=== PATIENT | male | born 1960 | race Caucasian/White ===

== ENCOUNTER 2021-02-11 10:26 | Inpatient (IN) | payer BC ==
[~2021-02-11] VITALS: Ht 172.7 cm; Wt 101.5 kg
[2021-02-11] MEDS ORDERED: SODIUM CHLORIDE 0.9% 1,000ML IVBOLUS ONE (11:30)
[2021-02-11] MEDS ORDERED: SODIUM CHLORIDE FLUSH 10ML SYR IVF ONE (11:30)
[2021-02-11 11:34] LABS: BASOPHILS % (AUTO) 1 % (0-1); EOSINOPHILS % (AUTO) 0 % (1-7); LYMPHOCYTES % (AUTO) 19 % (22-44); MEAN CORPUSCULAR HEMOGLOBIN 28.7 pg (27.5-34.5); MEAN CORPUSCULAR HGB CONC 34.2 g/dL (33.2-36.2); MONOCYTES % (AUTO) 6 % (2-9); NEUTROPHILS % (AUTO) 74 % (42-75); PLATELET COUNT 196 x10^3/uL (130-400); RED BLOOD COUNT 5.46 x10^6/uL (4.38-5.82); RED CELL DISTRIBUTION WIDTH 14.1 % (9.4-14.8)
[2021-02-11 11:42] LABS: ALANINE AMINOTRANSFERASE 59 U/L (12-78); ALBUMIN 3.6 g/dL (3.4-5.0); CALCIUM 8.2 mg/dL (8.5-10.1)
[2021-02-11 11:46] LABS: ALKALINE PHOSPHATASE 51 U/L (45-117); BILIRUBIN,TOTAL 0.4 mg/dL (0.2-1.0); TOTAL PROTEIN 7.5 g/dL (6.4-8.2)
[2021-02-11 12:02] LABS: ANION GAP 5 mmol/L (5-15); CHLORIDE 104 mmol/L (98-107)
[2021-02-11] MEDS ORDERED: ASPIRIN 81 MG TABLET CHEW PO ONE (12:30)
[2021-02-11 12:49] LABS: MICROSCOPIC AUTO
[2021-02-11] MEDS ORDERED: ASPIRIN 81 MG TABLET CHEW ONE (12:52)
--- NOTE | 2021-02-11 12:58 | NUR ---
late entry: first contact: NAUSEA, DIARRHEA, SUBJECTIVE FEVERS. REPORTS SEIZURE AND SYNCOPE ON TUESDAY, NO HX OF SEIZURES. COVID VACCINE TUESDAY. PT WITH STEADY GAIT TO BED. POSTIONED TO COMFORT. ATTACHED TO MONITORS. VSEly [place]. AT BEDSIDE. DR. MOELLER EVALUATED.
--- NOTE | 2021-02-11 12:58 | NUR ---
pt repostioned and medicated per franchesca. vss. cifuentes. at bedside.
--- NOTE | 2021-02-11 13:22 | NUR ---
REPORT CALLED TO [facility] READY TRANSFER
[2021-02-11 14:00] VITALS: BP 130/85
[2021-02-11] MEDS ORDERED: MELO7.5T31 PO (14:23)
[2021-02-11 15:30] LABS: CLOSTRIDIUM DIFFICILE ANTIGEN NEGATIVE; CLOSTRIDIUM DIFFICILE TOXIN NEGATIVE (Negative)
[2021-02-11 17:27] LABS: TROPONIN I 0.175 ng/mL (0.000-0.045)
[2021-02-11] MEDS ORDERED: ONDANSETRON ODT 4 MG PO PRN (18:00)
[2021-02-11] MEDS ORDERED: ONDANSETRON 2MG/ML, 2ML IVPush PRN (18:00)
[2021-02-11] MEDS ORDERED: MELATONIN 5 MG TABLET PO PRN (18:00)
[2021-02-11] MEDS ORDERED: BISACODYL 10 MG SUPP PR PRN (18:00)
[2021-02-11] MEDS ORDERED: DOCUSATE 100 MG CAPSULE PO PRN (18:00)
[2021-02-11] MEDS ORDERED: GUAIFENESIN/COD200MG-20MG/10ML LIQUID PO PRN (18:00)
[2021-02-11] MEDS ORDERED: HYDROcodone/APAP 5/325 TABLET PO PRN (18:00)
[2021-02-11] MEDS ORDERED: morphine SULFATE 10 MG/ML, 1ML IVPush PRN (18:00)
[2021-02-11] MEDS ORDERED: hydrALAzine 20 MG/ML, 1ML IVPush PRN (18:00)
[2021-02-11] MEDS ORDERED: POLYETHYLENE GLYCOL 17 GM PACKET PO PRN (18:00)
[2021-02-11] MEDS: D5%-LACTATED RINGERS 1,000 ML IV SCH (18:39)
[2021-02-11] MEDS: ENOXAPARIN 40 MG/0.4 ML SQ SCH (18:39)
[2021-02-11] MEDS ORDERED: CEFTRIAXONE 2 GM in DEXTROSE 5% 50 ML IVPB ONE (19:00)
[2021-02-11 19:08] LABS: TROPONIN I 0.178 ng/mL (0.000-0.045)
[2021-02-11 19:35] LABS: CRYPTOSPORIDIUM ANTIGEN Negative (Negative)
[2021-02-11 19:39] LABS: RAPID INFLUENZA A Negative (Negative); RAPID INFLUENZA B Negative (Negative)
[2021-02-11 19:52] VITALS: BP 136/87
[2021-02-12 01:06] LABS: TROPONIN I 0.198 ng/mL (0.000-0.045)
[2021-02-12 02:19] VITALS: BP_SYST 137; BP_SYST 139; BP_SYST 145; BP_DIAS 85; BP_DIAS 86; BP_DIAS 97
[2021-02-12] MEDS: ACETAMINOPHEN 325 MG TABLET PO PRN ×3 (04:24→22:25)
[2021-02-12] MEDS: ASPIRIN 325 MG TABLET EC PO SCH (05:45)
[2021-02-12 06:06] LABS: BASOPHILS % (AUTO) 1 % (0-1); EOSINOPHILS % (AUTO) 0 % (1-7); LYMPHOCYTES % (AUTO) 29 % (22-44); MEAN CORPUSCULAR HEMOGLOBIN 28.6 pg (27.5-34.5); MEAN CORPUSCULAR HGB CONC 34.1 g/dL (33.2-36.2); MEAN PLATELET VOLUME 7.4 fL (7.4-10.4); MONOCYTES % (AUTO) 6 % (2-9); NEUTROPHILS % (AUTO) 64 % (42-75); PLATELET COUNT 178 x10^3/uL (130-400); RED BLOOD COUNT 5.09 x10^6/uL (4.38-5.82); RED CELL DISTRIBUTION WIDTH 14.2 % (9.4-14.8)
[2021-02-12 06:20] LABS: ANION GAP 6 mmol/L (5-15); CALCIUM 8.1 mg/dL (8.5-10.1); CHLORIDE 103 mmol/L (98-107)
[2021-02-12 06:25] LABS: TROPONIN I 0.204 ng/mL (0.000-0.045)
[2021-02-12 06:31] LABS: ALANINE AMINOTRANSFERASE 61 U/L (12-78); ALKALINE PHOSPHATASE 43 U/L (45-117); BILIRUBIN,TOTAL 0.3 mg/dL (0.2-1.0); CHOL/HDL RATIO 4.1; CHOLESTEROL, TOTAL 131 mg/dL (140-239); CREATININE 1.12 mg/dL (0.7-1.3); HDL CHOL % 24 % (26-37); HDL CHOLESTEROL (DIRECT) 32 mg/dL (40-60); LDL CHOLESTEROL,CALCULATED 77 mg/dL (54-169); LDL/HDL RATIO 2.4 (0.5-3.0); TOTAL PROTEIN 6.8 g/dL (6.4-8.2); TRIGLYCERIDES 110 mg/dL (50-200); VLDL CHOLESTEROL 22 mg/dL (0-25)
[2021-02-12 07:28] VITALS: BP 109/68
[2021-02-12] MEDS: D5%-LACTATED RINGERS 1,000 ML IV SCH (09:01)
[2021-02-12] MEDS: PANTOPRAZOLE 40MG TABLET PO SCH (09:02)
[2021-02-12] MEDS: DOXYCYCLINE 100 MG in DEXTROSE 5% 250 ML IV SCH (12:24)
[2021-02-12] MEDS: GUAIFENESIN/COD200MG-20MG/10ML LIQUID PO SCH ×2 (13:30→22:25)
[2021-02-12] MEDS ORDERED: DIPHENOXYLATE/ATROPINE TABLET PO PRN (13:30)
[2021-02-12 15:16] VITALS: BP 118/75
[2021-02-12] MEDS ORDERED: REMDESIVIR 200 MG in SODIUM CHLORIDE 0.9% 250 ML IVPB ONE ×2 (18:00→21:00)
[2021-02-12] MEDS: CEFTRIAXONE 2 GM in DEXTROSE 5% 50 ML IVPB SCH (18:18)
[2021-02-12] MEDS: ENOXAPARIN 40 MG/0.4 ML SQ SCH (18:19)
[2021-02-12 18:45] LABS: D-DIMER 0.58 ug/mlFEU (0.00-0.52)
[2021-02-12 18:46] LABS: C-REACTIVE PROTEIN, QUANT 2.5 mg/dL (0.02-0.49)
[2021-02-12 21:20] VITALS: BP 135/82
[2021-02-12] MEDS: THIAMINE 100MG TABLET PO SCH (22:25)
[2021-02-12] MEDS: MELATONIN 5 MG TABLET PO SCH (22:25)
[2021-02-12] MEDS: ASCORBIC ACID 500 MG TABLET PO SCH (22:25)
[2021-02-13] MEDS: DOXYCYCLINE 100 MG in DEXTROSE 5% 250 ML IV SCH (01:30)
[2021-02-13 01:39] VITALS: BP 108/69
[2021-02-13] MEDS: GUAIFENESIN/COD200MG-20MG/10ML LIQUID PO SCH ×4 (05:09→23:20)
[2021-02-13] MEDS: ASPIRIN 325 MG TABLET EC PO SCH (05:09)
[2021-02-13] MEDS: D5%-LACTATED RINGERS 1,000 ML IV SCH ×2 (05:10→09:01)
[2021-02-13 05:43] LABS: BASOPHILS % (AUTO) 1 % (0-1); EOSINOPHILS % (AUTO) 0 % (1-7); LYMPHOCYTES % (AUTO) 27 % (22-44); MEAN CORPUSCULAR HEMOGLOBIN 28.5 pg (27.5-34.5); MEAN PLATELET VOLUME 7.1 fL (7.4-10.4); MONOCYTES % (AUTO) 5 % (2-9); NEUTROPHILS % (AUTO) 67 % (42-75); PLATELET COUNT 164 x10^3/uL (130-400); RED BLOOD COUNT 5.13 x10^6/uL (4.38-5.82)
[2021-02-13 05:52] LABS: ALANINE AMINOTRANSFERASE 80 U/L (12-78); ALBUMIN 3.1 g/dL (3.4-5.0); ANION GAP 6 mmol/L (5-15); CALCIUM 8.3 mg/dL (8.5-10.1); CHLORIDE 101 mmol/L (98-107)
[2021-02-13 05:54] LABS: ALKALINE PHOSPHATASE 51 U/L (45-117); BILIRUBIN,TOTAL 0.2 mg/dL (0.2-1.0); CREATININE 0.98 mg/dL (0.7-1.3); TOTAL PROTEIN 6.8 g/dL (6.4-8.2)
[2021-02-13] MEDS: CHOLECALCIFEROL 1,000 UNIT TABLET PO SCH (08:59)
[2021-02-13] MEDS: PANTOPRAZOLE 40MG TABLET PO SCH (08:59)
[2021-02-13] MEDS: THIAMINE 100MG TABLET PO SCH ×2 (08:59→20:55)
[2021-02-13] MEDS: ZINC SULFATE 220 MG CAPSULE PO SCH (09:00)
[2021-02-13] MEDS ORDERED: DIPHENOXYLATE/ATROPINE TABLET PO PRN (09:00)
[2021-02-13] MEDS: ASCORBIC ACID 500 MG TABLET PO SCH ×2 (09:00→20:55)
[2021-02-13] MEDS: DEXAMETHASONE 4 MG/ML, 1ML IVPush SCH (09:00)
[2021-02-13 09:11] VITALS: BP 142/91
[2021-02-13] MEDS: DOXYCYCLINE 100MG TABLET PO SCH ×2 (10:21→20:55)
[2021-02-13 13:17] VITALS: BP 159/93
[2021-02-13] MEDS: CEFTRIAXONE 2 GM in DEXTROSE 5% 50 ML IVPB SCH (17:37)
[2021-02-13] MEDS: ENOXAPARIN 40 MG/0.4 ML SQ SCH (17:37)
[2021-02-13] MEDS ORDERED: REMDESIVIR 100 MG in SODIUM CHLORIDE 0.9% 250 ML IVPB SCH (18:00)
[2021-02-13 19:07] VITALS: BP 152/82
[2021-02-13] MEDS: MELATONIN 5 MG TABLET PO SCH (20:56)
[2021-02-13] MEDS: REMDESIVIR 100 MG in SODIUM CHLORIDE 0.9% 250 ML IVPB SCH (20:56)
[2021-02-14] MEDS: D5%-LACTATED RINGERS 1,000 ML IV SCH ×2 (01:03→08:58)
[2021-02-14 01:08] VITALS: BP 124/78
[2021-02-14 04:54] LABS: ALBUMIN 2.6 g/dL (3.4-5.0); ANION GAP 4 mmol/L (5-15); CALCIUM 8.2 mg/dL (8.5-10.1); CHLORIDE 105 mmol/L (98-107); CREATININE 0.77 mg/dL (0.7-1.3)
[2021-02-14 04:57] LABS: ALANINE AMINOTRANSFERASE 68 U/L (12-78); ALKALINE PHOSPHATASE 38 U/L (45-117); BILIRUBIN,TOTAL 0.3 mg/dL (0.2-1.0); TOTAL PROTEIN 6.4 g/dL (6.4-8.2)
[2021-02-14] MEDS: GUAIFENESIN/COD200MG-20MG/10ML LIQUID PO SCH ×4 (05:08→23:00)
[2021-02-14] MEDS: ASPIRIN 325 MG TABLET EC PO SCH (05:08)
[2021-02-14] MEDS: ZINC SULFATE 220 MG CAPSULE PO SCH (08:57)
[2021-02-14] MEDS: DEXAMETHASONE 4 MG/ML, 1ML IVPush SCH (08:57)
[2021-02-14] MEDS: PANTOPRAZOLE 40MG TABLET PO SCH (08:58)
[2021-02-14] MEDS: THIAMINE 100MG TABLET PO SCH ×2 (08:58→21:34)
[2021-02-14] MEDS: CHOLECALCIFEROL 1,000 UNIT TABLET PO SCH (08:58)
[2021-02-14] MEDS: ASCORBIC ACID 500 MG TABLET PO SCH ×2 (08:58→21:34)
[2021-02-14] MEDS: DOXYCYCLINE 100MG TABLET PO SCH ×2 (08:58→21:34)
[2021-02-14 09:11] VITALS: BP 137/81
[2021-02-14 12:56] VITALS: BP 126/78
[2021-02-14] MEDS: CEFTRIAXONE 2 GM in DEXTROSE 5% 50 ML IVPB SCH (17:36)
[2021-02-14] MEDS: ENOXAPARIN 40 MG/0.4 ML SQ SCH (18:26)
[2021-02-14] MEDS: REMDESIVIR 100 MG in SODIUM CHLORIDE 0.9% 250 ML IVPB SCH (18:27)
[2021-02-14 18:35] VITALS: BP 149/92
[2021-02-14] MEDS: MELATONIN 5 MG TABLET PO SCH (21:00)
[2021-02-15] VITALS (7 sets, daily range): BP systolic 129–167; BP diastolic 74–97
[2021-02-15] MEDS: ASPIRIN 325 MG TABLET EC PO SCH (05:13)
[2021-02-15] MEDS: GUAIFENESIN/COD200MG-20MG/10ML LIQUID PO SCH ×4 (05:13→23:00)
[2021-02-15 05:43] LABS: ALBUMIN 2.8 g/dL (3.4-5.0); CALCIUM 8.4 mg/dL (8.5-10.1); CHLORIDE 107 mmol/L (98-107)
[2021-02-15 05:48] LABS: ALANINE AMINOTRANSFERASE 83 U/L (12-78); ALKALINE PHOSPHATASE 42 U/L (45-117); BILIRUBIN,TOTAL 0.4 mg/dL (0.2-1.0); CREATININE 0.78 mg/dL (0.7-1.3); TOTAL PROTEIN 6.8 g/dL (6.4-8.2)
[2021-02-15 05:54] LABS: ANION GAP 3 mmol/L (5-15)
[2021-02-15] MEDS: DOXYCYCLINE 100MG TABLET PO SCH ×2 (08:02→20:03)
[2021-02-15] MEDS: CHOLECALCIFEROL 1,000 UNIT TABLET PO SCH (08:02)
[2021-02-15] MEDS: ZINC SULFATE 220 MG CAPSULE PO SCH (08:02)
[2021-02-15] MEDS: THIAMINE 100MG TABLET PO SCH ×2 (08:02→20:03)
[2021-02-15] MEDS: ASCORBIC ACID 500 MG TABLET PO SCH ×2 (08:02→20:03)
[2021-02-15] MEDS: DEXAMETHASONE 4 MG/ML, 1ML IVPush SCH (08:02)
[2021-02-15] MEDS: PANTOPRAZOLE 40MG TABLET PO SCH (08:02)
[2021-02-15] MEDS: CEFTRIAXONE 2 GM in DEXTROSE 5% 50 ML IVPB SCH (17:13)
[2021-02-15] MEDS: ENOXAPARIN 40 MG/0.4 ML SQ SCH (17:15)
[2021-02-15] MEDS: REMDESIVIR 100 MG in SODIUM CHLORIDE 0.9% 250 ML IVPB SCH (18:10)
[2021-02-15] MEDS: MELATONIN 5 MG TABLET PO SCH (20:02)
[2021-02-16 00:49] VITALS: BP 128/78
[2021-02-16] MEDS: GUAIFENESIN/COD200MG-20MG/10ML LIQUID PO SCH ×4 (05:22→23:31)
[2021-02-16] MEDS: ASPIRIN 325 MG TABLET EC PO SCH (05:22)
[2021-02-16 06:10] LABS: BASOPHILS % (AUTO) 0 % (0-1); EOSINOPHILS % (AUTO) 0 % (1-7); LYMPHOCYTES % (AUTO) 14 % (22-44); MEAN CORPUSCULAR HEMOGLOBIN 28.6 pg (27.5-34.5); MEAN CORPUSCULAR HGB CONC 34.1 g/dL (33.2-36.2); MEAN PLATELET VOLUME 7.9 fL (7.4-10.4); MONOCYTES % (AUTO) 8 % (2-9); NEUTROPHILS % (AUTO) 78 % (42-75); PLATELET COUNT 247 x10^3/uL (130-400); RED BLOOD COUNT 5.36 x10^6/uL (4.38-5.82); RED CELL DISTRIBUTION WIDTH 13.9 % (9.4-14.8)
[2021-02-16 06:14] LABS: ALBUMIN 2.9 g/dL (3.4-5.0); ANION GAP 2 mmol/L (5-15); CALCIUM 8.8 mg/dL (8.5-10.1); CHLORIDE 106 mmol/L (98-107)
[2021-02-16 06:17] LABS: ALANINE AMINOTRANSFERASE 88 U/L (12-78); ALKALINE PHOSPHATASE 48 U/L (45-117); BILIRUBIN,TOTAL 0.5 mg/dL (0.2-1.0); CREATININE 0.86 mg/dL (0.7-1.3); TOTAL PROTEIN 6.8 g/dL (6.4-8.2)
[2021-02-16 08:23] VITALS: BP 128/82
[2021-02-16] MEDS: ZINC SULFATE 220 MG CAPSULE PO SCH (08:25)
[2021-02-16] MEDS: CHOLECALCIFEROL 1,000 UNIT TABLET PO SCH (08:25)
[2021-02-16] MEDS: DEXAMETHASONE 4 MG/ML, 1ML IVPush SCH (08:25)
[2021-02-16] MEDS: ASCORBIC ACID 500 MG TABLET PO SCH ×2 (08:25→21:28)
[2021-02-16] MEDS: DOXYCYCLINE 100MG TABLET PO SCH ×2 (08:25→21:28)
[2021-02-16] MEDS: THIAMINE 100MG TABLET PO SCH ×2 (08:30→21:28)
[2021-02-16] MEDS: PANTOPRAZOLE 40MG TABLET PO SCH (08:30)
[2021-02-16] MEDS ORDERED: FUROSEMIDE 40 MG/4 ML IV ONE (10:00)
[2021-02-16 13:25] VITALS: BP 121/78
[2021-02-16] MEDS: CEFTRIAXONE 2 GM in DEXTROSE 5% 50 ML IVPB SCH (17:00)
[2021-02-16] MEDS: ENOXAPARIN 40 MG/0.4 ML SQ SCH (18:18)
[2021-02-16] MEDS: REMDESIVIR 100 MG in SODIUM CHLORIDE 0.9% 250 ML IVPB SCH (18:18)
[2021-02-16 19:37] VITALS: BP 143/91
[2021-02-16] MEDS: MELATONIN 5 MG TABLET PO SCH (21:00)
[2021-02-16] MEDS: PIPERACILLIN/TAZO 3.375 GM in DEXTROSE 5% 50 ML IV SCH (22:15)
[2021-02-16 22:44] LABS: D-DIMER 0.62 ug/mlFEU (0.00-0.52)
[2021-02-17 02:09] VITALS: BP 135/82
[2021-02-17] MEDS: PIPERACILLIN/TAZO 3.375 GM in DEXTROSE 5% 50 ML IV SCH ×4 (04:32→22:08)
[2021-02-17] MEDS: ASPIRIN 325 MG TABLET EC PO SCH (04:32)
[2021-02-17] MEDS: GUAIFENESIN/COD200MG-20MG/10ML LIQUID PO SCH ×4 (04:32→22:07)
[2021-02-17 05:42] LABS: BASOPHILS % (AUTO) 0 % (0-1); EOSINOPHILS % (AUTO) 0 % (1-7); LYMPHOCYTES % (AUTO) 14 % (22-44); MEAN CORPUSCULAR HEMOGLOBIN 28.9 pg (27.5-34.5); MEAN CORPUSCULAR HGB CONC 34.8 g/dL (33.2-36.2); MONOCYTES % (AUTO) 9 % (2-9); NEUTROPHILS % (AUTO) 77 % (42-75); PLATELET COUNT 257 x10^3/uL (130-400); RED BLOOD COUNT 5.17 x10^6/uL (4.38-5.82); RED CELL DISTRIBUTION WIDTH 13.7 % (9.4-14.8)
[2021-02-17 05:52] LABS: ANION GAP 5 mmol/L (5-15); CALCIUM 8.6 mg/dL (8.5-10.1); CHLORIDE 103 mmol/L (98-107); CREATININE 0.75 mg/dL (0.7-1.3)
[2021-02-17] MEDS: CHOLECALCIFEROL 1,000 UNIT TABLET PO SCH (07:59)
[2021-02-17] MEDS: ZINC SULFATE 220 MG CAPSULE PO SCH (07:59)
[2021-02-17] MEDS: THIAMINE 100MG TABLET PO SCH ×2 (07:59→20:19)
[2021-02-17] MEDS: PANTOPRAZOLE 40MG TABLET PO SCH (07:59)
[2021-02-17] MEDS: DEXAMETHASONE 4 MG/ML, 1ML IVPush SCH (08:00)
[2021-02-17] MEDS: ASCORBIC ACID 500 MG TABLET PO SCH ×2 (08:00→20:19)
[2021-02-17 08:25] VITALS: BP 123/75
[2021-02-17 11:47] LABS: TROPONIN I 0.218 ng/mL (0.000-0.045)
[2021-02-17] MEDS ORDERED: OMNIPAQUE 350 MG/ML, 100ML BOTTLE ONE (12:24)
[2021-02-17 13:35] VITALS: BP 137/86
[2021-02-17] MEDS: ENOXAPARIN 40 MG/0.4 ML SQ SCH (17:33)
[2021-02-17 18:36] VITALS: BP 132/75
[2021-02-17] MEDS: MELATONIN 5 MG TABLET PO SCH (20:19)
[2021-02-18 00:52] VITALS: BP 113/72
[2021-02-18] MEDS: PIPERACILLIN/TAZO 3.375 GM in DEXTROSE 5% 50 ML IV SCH ×4 (05:01→23:54)
[2021-02-18] MEDS: ASPIRIN 325 MG TABLET EC PO SCH (05:02)
[2021-02-18] MEDS: GUAIFENESIN/COD200MG-20MG/10ML LIQUID PO SCH ×4 (05:02→23:54)
[2021-02-18 06:02] LABS: BASOPHILS % (AUTO) 0 % (0-1); EOSINOPHILS % (AUTO) 1 % (1-7); LYMPHOCYTES % (AUTO) 8 % (22-44); MEAN CORPUSCULAR HEMOGLOBIN 28.1 pg (27.5-34.5); MEAN CORPUSCULAR HGB CONC 33.9 g/dL (33.2-36.2); MEAN PLATELET VOLUME 7.4 fL (7.4-10.4); MONOCYTES % (AUTO) 7 % (2-9); NEUTROPHILS % (AUTO) 84 % (42-75); PLATELET COUNT 305 x10^3/uL (130-400); RED BLOOD COUNT 5.22 x10^6/uL (4.38-5.82); RED CELL DISTRIBUTION WIDTH 13.5 % (9.4-14.8)
[2021-02-18 06:20] LABS: ANION GAP 5 mmol/L (5-15); CALCIUM 8.4 mg/dL (8.5-10.1); CHLORIDE 106 mmol/L (98-107)
[2021-02-18 06:21] LABS: CREATININE 0.76 mg/dL (0.7-1.3)
[2021-02-18 07:31] VITALS: BP 119/72
[2021-02-18] MEDS: ASCORBIC ACID 500 MG TABLET PO SCH ×2 (08:12→20:01)
[2021-02-18] MEDS: PANTOPRAZOLE 40MG TABLET PO SCH (08:12)
[2021-02-18] MEDS: ZINC SULFATE 220 MG CAPSULE PO SCH (08:12)
[2021-02-18] MEDS: DEXAMETHASONE 4 MG/ML, 1ML IVPush SCH (08:12)
[2021-02-18] MEDS: CHOLECALCIFEROL 1,000 UNIT TABLET PO SCH (08:12)
[2021-02-18] MEDS: THIAMINE 100MG TABLET PO SCH ×2 (08:12→20:01)
[2021-02-18] MEDS ORDERED: REMDESIVIR 200 MG in SODIUM CHLORIDE 0.9% 250 ML IVPB ONE (11:00)
[2021-02-18 11:24] LABS: O2 FLOW 45 L/min
[2021-02-18] MEDS: FUROSEMIDE 20 MG/2 ML IV SCH ×2 (12:57→18:00)
[2021-02-18] MEDS ORDERED: DEXAMETHASONE 4 MG/ML, 1ML IVPush SCH (13:30)
[2021-02-18] MEDS ORDERED: DEXAMETHASONE 10 MG in SODIUM CHLORIDE 0.9% 50 ML IV SCH (13:30)
[2021-02-18 14:03] VITALS: BP 140/82
[2021-02-18] MEDS: ENOXAPARIN 40 MG/0.4 ML SQ SCH (17:59)
[2021-02-18 18:27] VITALS: BP 122/78
[2021-02-18] MEDS: MELATONIN 5 MG TABLET PO SCH (20:01)
[2021-02-18] MEDS: DEXAMETHASONE 10 MG in SODIUM CHLORIDE 0.9% 50 ML IV SCH (20:53)
[2021-02-19] VITALS: BP 154/94
[2021-02-19] MEDS: ASPIRIN 325 MG TABLET EC PO SCH (05:40)
[2021-02-19] MEDS: GUAIFENESIN/COD200MG-20MG/10ML LIQUID PO SCH ×4 (05:40→23:46)
[2021-02-19] MEDS: PIPERACILLIN/TAZO 3.375 GM in DEXTROSE 5% 50 ML IV SCH ×2 (05:40→10:59)
[2021-02-19 06:12] LABS: TROPONIN I 0.187 ng/mL (0.000-0.045)
[2021-02-19 07:01] LABS: ALANINE AMINOTRANSFERASE 87 U/L (12-78); ALBUMIN 2.7 g/dL (3.4-5.0); ANION GAP 10 mmol/L (5-15); CALCIUM 8.6 mg/dL (8.5-10.1); CHLORIDE 103 mmol/L (98-107); CREATININE 0.95 mg/dL (0.7-1.3)
[2021-02-19 07:03] LABS: ALKALINE PHOSPHATASE 61 U/L (45-117); BILIRUBIN,TOTAL 0.6 mg/dL (0.2-1.0)
[2021-02-19 07:56] VITALS: BP 130/84
[2021-02-19] MEDS: PANTOPRAZOLE 40MG TABLET PO SCH (08:53)
[2021-02-19] MEDS: FUROSEMIDE 20 MG/2 ML IV SCH ×2 (08:53→17:41)
[2021-02-19] MEDS: ASCORBIC ACID 500 MG TABLET PO SCH ×2 (08:54→20:21)
[2021-02-19] MEDS: DEXAMETHASONE 10 MG in SODIUM CHLORIDE 0.9% 50 ML IV SCH ×2 (08:54→20:21)
[2021-02-19] MEDS: THIAMINE 100MG TABLET PO SCH ×2 (08:54→20:22)
[2021-02-19] MEDS: ZINC SULFATE 220 MG CAPSULE PO SCH (08:54)
[2021-02-19] MEDS: CHOLECALCIFEROL 1,000 UNIT TABLET PO SCH (08:54)
[2021-02-19] MEDS: REMDESIVIR 100 MG in SODIUM CHLORIDE 0.9% 250 ML IVPB SCH (10:59)
[2021-02-19 12:07] VITALS: BP 129/77
[2021-02-19] MEDS: ENOXAPARIN 40 MG/0.4 ML SQ SCH (17:41)
[2021-02-19 20:16] VITALS: BP 145/88
[2021-02-19] MEDS: MELATONIN 5 MG TABLET PO SCH (20:22)
[2021-02-19 23:49] VITALS: BP 139/86
[2021-02-20 05:21] LABS: BASOPHILS % (AUTO) 0 % (0-1); EOSINOPHILS % (AUTO) 0 % (1-7); LYMPHOCYTES % (AUTO) 4 % (22-44); MEAN CORPUSCULAR HEMOGLOBIN 28.7 pg (27.5-34.5); MEAN CORPUSCULAR HGB CONC 34.4 g/dL (33.2-36.2); MEAN PLATELET VOLUME 7.5 fL (7.4-10.4); MONOCYTES % (AUTO) 6 % (2-9); NEUTROPHILS % (AUTO) 90 % (42-75); PLATELET COUNT 420 x10^3/uL (130-400); RED BLOOD COUNT 5.38 x10^6/uL (4.38-5.82); RED CELL DISTRIBUTION WIDTH 13.4 % (9.4-14.8)
[2021-02-20 05:35] LABS: ALBUMIN 2.8 g/dL (3.4-5.0); ANION GAP 6 mmol/L (5-15); CALCIUM 8.9 mg/dL (8.5-10.1); CHLORIDE 103 mmol/L (98-107)
[2021-02-20 05:39] LABS: ALANINE AMINOTRANSFERASE 70 U/L (12-78); ALKALINE PHOSPHATASE 67 U/L (45-117); BILIRUBIN,TOTAL 0.8 mg/dL (0.2-1.0); CREATININE 0.94 mg/dL (0.7-1.3); TOTAL PROTEIN 7.1 g/dL (6.4-8.2)
[2021-02-20] MEDS: ASPIRIN 325 MG TABLET EC PO SCH (05:39)
[2021-02-20] MEDS: GUAIFENESIN/COD200MG-20MG/10ML LIQUID PO SCH ×4 (05:39→23:58)
[2021-02-20 08:51] VITALS: BP 142/84
[2021-02-20] MEDS: THIAMINE 100MG TABLET PO SCH ×2 (08:53→20:32)
[2021-02-20] MEDS: PANTOPRAZOLE 40MG TABLET PO SCH (08:53)
[2021-02-20] MEDS: ASCORBIC ACID 500 MG TABLET PO SCH ×2 (08:54→20:32)
[2021-02-20] MEDS: CHOLECALCIFEROL 1,000 UNIT TABLET PO SCH (08:54)
[2021-02-20] MEDS: FUROSEMIDE 20 MG/2 ML IV SCH ×2 (08:54→18:50)
[2021-02-20] MEDS: ZINC SULFATE 220 MG CAPSULE PO SCH (08:54)
[2021-02-20] MEDS: DEXAMETHASONE 10 MG in SODIUM CHLORIDE 0.9% 50 ML IV SCH ×2 (10:00→20:32)
[2021-02-20] MEDS: REMDESIVIR 100 MG in SODIUM CHLORIDE 0.9% 250 ML IVPB SCH (11:04)
[2021-02-20 13:04] VITALS: BP 127/81
[2021-02-20 18:44] VITALS: BP 148/77
[2021-02-20] MEDS: ENOXAPARIN 40 MG/0.4 ML SQ SCH (18:50)
[2021-02-20] MEDS: MELATONIN 5 MG TABLET PO SCH (20:33)
[2021-02-20 23:59] VITALS: BP 142/88
[2021-02-21 05:41] LABS: BASOPHILS % (AUTO) 1 % (0-1); EOSINOPHILS % (AUTO) 0 % (1-7); LYMPHOCYTES % (AUTO) 4 % (22-44); MEAN CORPUSCULAR HGB CONC 34.9 g/dL (33.2-36.2); MEAN PLATELET VOLUME 7.7 fL (7.4-10.4); MONOCYTES % (AUTO) 3 % (2-9); NEUTROPHILS % (AUTO) 92 % (42-75); PLATELET COUNT 455 x10^3/uL (130-400); RED BLOOD COUNT 5.22 x10^6/uL (4.38-5.82); RED CELL DISTRIBUTION WIDTH 13.8 % (9.4-14.8)
[2021-02-21] MEDS: ASPIRIN 325 MG TABLET EC PO SCH (05:41)
[2021-02-21] MEDS: GUAIFENESIN/COD200MG-20MG/10ML LIQUID PO SCH ×4 (05:41→23:00)
[2021-02-21 05:50] LABS: ALANINE AMINOTRANSFERASE 57 U/L (12-78); ALBUMIN 2.6 g/dL (3.4-5.0); ANION GAP 6 mmol/L (5-15); CALCIUM 8.8 mg/dL (8.5-10.1); CHLORIDE 103 mmol/L (98-107); CREATININE 0.94 mg/dL (0.7-1.3)
[2021-02-21 05:52] LABS: ALKALINE PHOSPHATASE 59 U/L (45-117); BILIRUBIN,TOTAL 0.7 mg/dL (0.2-1.0); TOTAL PROTEIN 6.7 g/dL (6.4-8.2)
[2021-02-21 06:29] VITALS: BP 116/69
[2021-02-21] MEDS: ZINC SULFATE 220 MG CAPSULE PO SCH (09:32)
[2021-02-21] MEDS: PANTOPRAZOLE 40MG TABLET PO SCH (09:32)
[2021-02-21] MEDS: CHOLECALCIFEROL 1,000 UNIT TABLET PO SCH (09:32)
[2021-02-21] MEDS: DEXAMETHASONE 4 MG/ML, 1ML IVPush SCH (09:32)
[2021-02-21] MEDS: THIAMINE 100MG TABLET PO SCH ×2 (09:32→20:57)
[2021-02-21] MEDS: ASCORBIC ACID 500 MG TABLET PO SCH ×2 (09:32→20:56)
[2021-02-21 11:24] VITALS: BP 115/71
[2021-02-21] MEDS: REMDESIVIR 100 MG in SODIUM CHLORIDE 0.9% 250 ML IVPB SCH (11:48)
[2021-02-21 18:40] VITALS: BP 145/89
[2021-02-21] MEDS: ENOXAPARIN 40 MG/0.4 ML SQ SCH (18:47)
[2021-02-21] MEDS: MELATONIN 5 MG TABLET PO SCH (20:57)
[2021-02-22 02:07] VITALS: BP 142/86
[2021-02-22] MEDS: GUAIFENESIN/COD200MG-20MG/10ML LIQUID PO SCH ×4 (04:52→23:00)
[2021-02-22 05:21] LABS: ALBUMIN 2.5 g/dL (3.4-5.0); ANION GAP 5 mmol/L (5-15); CHLORIDE 103 mmol/L (98-107)
[2021-02-22 05:27] LABS: ALANINE AMINOTRANSFERASE 55 U/L (12-78); ALKALINE PHOSPHATASE 61 U/L (45-117); BILIRUBIN,TOTAL 0.6 mg/dL (0.2-1.0); CREATININE 0.73 mg/dL (0.7-1.3); TOTAL PROTEIN 6.4 g/dL (6.4-8.2)
[2021-02-22 08:58] VITALS: BP 140/83
[2021-02-22] MEDS: THIAMINE 100MG TABLET PO SCH ×2 (09:15→20:59)
[2021-02-22] MEDS: PANTOPRAZOLE 40MG TABLET PO SCH (09:15)
[2021-02-22] MEDS: ASCORBIC ACID 500 MG TABLET PO SCH ×2 (09:15→21:00)
[2021-02-22] MEDS: ASPIRIN 325 MG TABLET EC PO SCH (09:15)
[2021-02-22] MEDS: DEXAMETHASONE 4 MG/ML, 1ML IVPush SCH (09:15)
[2021-02-22] MEDS: ZINC SULFATE 220 MG CAPSULE PO SCH (09:16)
[2021-02-22] MEDS: CHOLECALCIFEROL 1,000 UNIT TABLET PO SCH (09:16)
[2021-02-22] MEDS ORDERED: ACETAMINOPHEN 325 MG TABLET PO PRN (10:30)
[2021-02-22] MEDS: SODIUM CHLORIDE 0.9% 1,000 ML IV SCH (11:11)
[2021-02-22] MEDS: REMDESIVIR 100 MG in SODIUM CHLORIDE 0.9% 250 ML IVPB SCH (11:11)
[2021-02-22 14:00] VITALS: BP 147/85
[2021-02-22] MEDS: LACTOBACILLUS CHEW TABLET PO SCH ×2 (18:01→20:57)
[2021-02-22] MEDS: ENOXAPARIN 40 MG/0.4 ML SQ SCH (18:01)
[2021-02-22] MEDS: CARVEDILOL 6.25 MG TABLET PO SCH (18:01)
[2021-02-22] MEDS: ATORVASTATIN 40 MG TABLET PO SCH (20:59)
[2021-02-22] MEDS: MELATONIN 5 MG TABLET PO SCH (20:59)
[2021-02-22 21:02] VITALS: BP 107/69
[2021-02-23] MEDS: SODIUM CHLORIDE 0.9% 1,000 ML IV SCH ×2 (00:48→14:21)
[2021-02-23 02:50] VITALS: BP 110/65
[2021-02-23 05:07] LABS: BASOPHILS % (AUTO) 0 % (0-1); EOSINOPHILS % (AUTO) 4 % (1-7); LYMPHOCYTES % (AUTO) 7 % (22-44); MEAN CORPUSCULAR HEMOGLOBIN 28.8 pg (27.5-34.5); MEAN CORPUSCULAR HGB CONC 34.5 g/dL (33.2-36.2); MEAN PLATELET VOLUME 7.7 fL (7.4-10.4); MONOCYTES % (AUTO) 7 % (2-9); NEUTROPHILS % (AUTO) 82 % (42-75); PLATELET COUNT 417 x10^3/uL (130-400); RED BLOOD COUNT 4.94 x10^6/uL (4.38-5.82); RED CELL DISTRIBUTION WIDTH 13.8 % (9.4-14.8)
[2021-02-23 05:14] LABS: ANION GAP 7 mmol/L (5-15); CALCIUM 7.5 mg/dL (8.5-10.1); CHLORIDE 105 mmol/L (98-107)
[2021-02-23] MEDS: ASPIRIN 325 MG TABLET EC PO SCH (05:54)
[2021-02-23] MEDS: GUAIFENESIN/COD200MG-20MG/10ML LIQUID PO SCH ×3 (05:54→17:47)
[2021-02-23] MEDS: CARVEDILOL 6.25 MG TABLET PO SCH ×2 (05:55→17:47)
[2021-02-23] MEDS: ENOXAPARIN 40 MG/0.4 ML SQ SCH ×2 (05:55→17:47)
[2021-02-23] MEDS: LACTOBACILLUS CHEW TABLET PO SCH ×3 (09:18→20:20)
[2021-02-23] MEDS: ZINC SULFATE 220 MG CAPSULE PO SCH (09:19)
[2021-02-23] MEDS: THIAMINE 100MG TABLET PO SCH ×2 (09:19→20:20)
[2021-02-23] MEDS: ASCORBIC ACID 500 MG TABLET PO SCH ×2 (09:19→20:18)
[2021-02-23] MEDS: CHOLECALCIFEROL 1,000 UNIT TABLET PO SCH (09:19)
[2021-02-23] MEDS: PANTOPRAZOLE 40MG TABLET PO SCH (09:19)
[2021-02-23] MEDS: DEXAMETHASONE 4 MG/ML, 1ML IVPush SCH (09:20)
[2021-02-23 09:22] VITALS: BP 105/62
[2021-02-23 12:57] VITALS: BP 110/66
[2021-02-23 19:04] VITALS: BP 127/74
[2021-02-23] MEDS: MELATONIN 5 MG TABLET PO SCH (20:18)
[2021-02-23] MEDS: ATORVASTATIN 40 MG TABLET PO SCH (20:20)
[2021-02-23] MEDS ORDERED: SENNOSIDES 8.6 MG TABLET PO PRN (21:00)
[2021-02-24] MEDS: GUAIFENESIN/COD200MG-20MG/10ML LIQUID PO SCH ×4 (00:23→20:43)
[2021-02-24 02:56] VITALS: BP 124/70
[2021-02-24] MEDS ORDERED: CARVEDILOL 3.125 MG TABLET ONE (05:01)
[2021-02-24] MEDS: SODIUM CHLORIDE 0.9% 1,000 ML IV SCH (05:09)
[2021-02-24] MEDS: ASPIRIN 325 MG TABLET EC PO SCH (05:09)
[2021-02-24] MEDS: CARVEDILOL 6.25 MG TABLET PO SCH ×2 (05:10→17:49)
[2021-02-24] MEDS: ENOXAPARIN 40 MG/0.4 ML SQ SCH ×2 (05:12→17:49)
[2021-02-24 08:29] VITALS: BP 124/76
[2021-02-24] MEDS: LACTOBACILLUS CHEW TABLET PO SCH ×3 (09:27→20:44)
[2021-02-24] MEDS: THIAMINE 100MG TABLET PO SCH ×2 (09:27→20:42)
[2021-02-24] MEDS: CHOLECALCIFEROL 1,000 UNIT TABLET PO SCH (09:27)
[2021-02-24] MEDS: DEXAMETHASONE 4 MG TABLET PO SCH (09:27)
[2021-02-24] MEDS: ZINC SULFATE 220 MG CAPSULE PO SCH (09:27)
[2021-02-24] MEDS: PANTOPRAZOLE 40MG TABLET PO SCH (09:27)
[2021-02-24] MEDS: ASCORBIC ACID 500 MG TABLET PO SCH ×2 (09:27→20:44)
[2021-02-24 13:50] VITALS: BP 126/74
[2021-02-24 18:55] VITALS: BP 119/66
[2021-02-24] MEDS: ATORVASTATIN 40 MG TABLET PO SCH (20:44)
[2021-02-24] MEDS: MELATONIN 5 MG TABLET PO SCH (20:48)
[2021-02-24 23:49] VITALS: BP 112/66
[2021-02-25] MEDS: SODIUM CHLORIDE 0.9% 1,000 ML IV SCH ×2 (02:11→10:54)
[2021-02-25] MEDS: GUAIFENESIN/COD200MG-20MG/10ML LIQUID PO SCH ×4 (03:22→22:10)
[2021-02-25 05:15] LABS: BASOPHILS % (AUTO) 0 % (0-1); EOSINOPHILS % (AUTO) 0 % (1-7); LYMPHOCYTES % (AUTO) 8 % (22-44); MEAN CORPUSCULAR HEMOGLOBIN 28.1 pg (27.5-34.5); MEAN CORPUSCULAR HGB CONC 33.8 g/dL (33.2-36.2); MEAN PLATELET VOLUME 7.6 fL (7.4-10.4); MONOCYTES % (AUTO) 6 % (2-9); NEUTROPHILS % (AUTO) 86 % (42-75); PLATELET COUNT 409 x10^3/uL (130-400); RED BLOOD COUNT 4.85 x10^6/uL (4.38-5.82); RED CELL DISTRIBUTION WIDTH 14.1 % (9.4-14.8)
[2021-02-25] MEDS: ASPIRIN 325 MG TABLET EC PO SCH (06:19)
[2021-02-25] MEDS: CARVEDILOL 6.25 MG TABLET PO SCH ×2 (06:19→17:47)
[2021-02-25] MEDS: ENOXAPARIN 40 MG/0.4 ML SQ SCH ×2 (07:10→17:47)
[2021-02-25] MEDS: THIAMINE 100MG TABLET PO SCH ×2 (09:03→22:10)
[2021-02-25] MEDS: ASCORBIC ACID 500 MG TABLET PO SCH ×2 (09:03→22:10)
[2021-02-25] MEDS: LACTOBACILLUS CHEW TABLET PO SCH ×3 (09:03→22:10)
[2021-02-25] MEDS: PANTOPRAZOLE 40MG TABLET PO SCH (09:03)
[2021-02-25] MEDS: ZINC SULFATE 220 MG CAPSULE PO SCH (09:03)
[2021-02-25] MEDS: CHOLECALCIFEROL 1,000 UNIT TABLET PO SCH (09:03)
[2021-02-25] MEDS: DEXAMETHASONE 4 MG TABLET PO SCH (09:03)
[2021-02-25 09:08] VITALS: BP 143/88
[2021-02-25] MEDS ORDERED: RIVA10TA2 PO (12:27)
[2021-02-25] MEDS ORDERED: ASCO500T9 PO (12:27)
[2021-02-25] MEDS ORDERED: ATOR40TA78 PO (12:27)
[2021-02-25] MEDS ORDERED: ACID1TAB7 PO (12:27)
[2021-02-25] MEDS ORDERED: CARV6.2512 PO (12:27)
[2021-02-25] MEDS ORDERED: ZINC220C8 PO (12:27)
[2021-02-25 14:00] VITALS: BP 132/78
[2021-02-25] MEDS ORDERED: DEXA4TAB66 PO (14:14)
[2021-02-25 20:34] VITALS: BP 146/88
[2021-02-25] MEDS: ATORVASTATIN 40 MG TABLET PO SCH (22:10)
[2021-02-25] MEDS: MELATONIN 5 MG TABLET PO SCH (22:11)
[2021-02-26] MEDS: SODIUM CHLORIDE 0.9% 1,000 ML IV SCH (00:22)
[2021-02-26 02:25] VITALS: BP 138/87
[2021-02-26] MEDS: GUAIFENESIN/COD200MG-20MG/10ML LIQUID PO SCH ×2 (03:20→08:15)
[2021-02-26 05:34] LABS: BASOPHILS % (AUTO) 0 % (0-1); EOSINOPHILS % (AUTO) 0 % (1-7); LYMPHOCYTES % (AUTO) 8 % (22-44); MEAN CORPUSCULAR HEMOGLOBIN 28.4 pg (27.5-34.5); MEAN CORPUSCULAR HGB CONC 33.9 g/dL (33.2-36.2); MEAN PLATELET VOLUME 7.6 fL (7.4-10.4); MONOCYTES % (AUTO) 5 % (2-9); NEUTROPHILS % (AUTO) 87 % (42-75); PLATELET COUNT 411 x10^3/uL (130-400); RED BLOOD COUNT 5.48 x10^6/uL (4.38-5.82); RED CELL DISTRIBUTION WIDTH 13.8 % (9.4-14.8)
[2021-02-26] MEDS: ASPIRIN 325 MG TABLET EC PO SCH (06:31)
[2021-02-26] MEDS: ENOXAPARIN 40 MG/0.4 ML SQ SCH (06:31)
[2021-02-26] MEDS: ASCORBIC ACID 500 MG TABLET PO SCH (08:14)
[2021-02-26] MEDS: THIAMINE 100MG TABLET PO SCH (08:14)
[2021-02-26] MEDS: ZINC SULFATE 220 MG CAPSULE PO SCH (08:14)
[2021-02-26] MEDS: CHOLECALCIFEROL 1,000 UNIT TABLET PO SCH (08:14)
[2021-02-26] MEDS: LACTOBACILLUS CHEW TABLET PO SCH (08:14)
[2021-02-26] MEDS: PANTOPRAZOLE 40MG TABLET PO SCH (08:15)
[2021-02-26 09:55] VITALS: BP 151/81
[2021-02-26] MEDS: CARVEDILOL 6.25 MG TABLET PO SCH (10:22)
== END 2021-02-26 12:28 | disposition home or self-care (01) | DRG 871 ==
LOC: ED 13:34 → 5SO 14:39
PROVIDERS: ADMIT Internal Medicine; ATTEND Internal Medicine
PROC: XW033E5 Introduction of Remdesivir Anti-infective into Peripheral Vein, Percutaneous Approach, New Technology Group 5 (ICD-10-PCS; principal; 2021-02-13)
DX: A41.89 Other specified sepsis (principal); U07.1 COVID-19; J96.01 Acute respiratory failure with hypoxia; J12.82 Pneumonia due to coronavirus disease 2019; I21.A1 Myocardial infarction type 2; J15.9 Unspecified bacterial pneumonia; E87.1 Hypo-osmolality and hyponatremia; E66.9 Obesity, unspecified; E83.51 Hypocalcemia; I10 Essential (primary) hypertension; R74.01 Elevation of levels of liver transaminase levels; Z68.34 Body mass index [BMI] 34.0-34.9, adult; Z82.49 Family history of ischemic heart disease and other diseases of the circulatory system
CPT/HCPCS: 36415; 36600; 84145; 87046; 87400; 87427; 96374; 99285; J7121; 70450; 71045; 71275; 80048; 80053; 80061; 81001; 82330; 82728; 82803; 83615; 83735; 84100; 84443; 84484; 85025; 85379; 85384; 86140; 87040; 87205; 87305; 87324; 87328; 87329; 93005; 93306; G0378; J0696; J1100; J1650; J1940; J2405; J2543; J7060; Q0162; Q9967; U0005; J7030; J7050; U0003